=== PATIENT | female | born 1965 | race African-American/Black ===

== ENCOUNTER 2024-03-03 10:26 | Emergency (ER) | payer BC ==
[~2024-03-03] VITALS: Ht 160 cm; Wt 61.8 kg
[2024-03-03 10:35] VITALS: TEMP 98
[2024-03-03 11:51] LABS: COLLECTION METHOD CLEAN CATCH
[2024-03-03] MEDS ORDERED: NS 1,000 ML IV ONE ×2 (12:00)
[2024-03-03 12:06] LABS: PH 6.5 (5.0-8.5); URINE APPEARANCE CLEAR (CLEAR/HAZY); URINE BLOOD NEGATIVE (NEGATIVE); URINE COLOR YELLOW (YELLOW); URINE GLUCOSE NEGATIVE (NEGATIVE); URINE KETONE NEGATIVE (NEGATIVE); URINE NITRATE NEGATIVE (NEGATIVE); URINE PROTEIN(semi-quant) NEGATIVE (NEGATIVE); URINE UROBILINOGEN 0.2 E.U/dL (0.2-1.0)
[2024-03-03 12:18] LABS: ALBUMIN 3.6 g/dL (3.5-5.0); BILIRUBIN,TOTAL 0.5 mg/dL (0.2-1.2); CALCIUM 8.7 mg/dL (8.4-10.2); CREATININE, serum 0.76 mg/dL (0.57-1.11); TOTAL PROTEIN 7.4 g/dl (6.2-8.1)
[2024-03-03 12:29] LABS: TROPONIN-I 0.013 ng/mL (0.00-0.033)
[2024-03-03 13:05] LABS: BASO % 0.5 % (0.0-2.0); EOS # 0.2 K/mm3 (0.0-0.7); EOS % 4.5 % (0.0-4.0); GRAN # 2.4 K/mm3 (1.4-6.5); GRAN % 56.9 % (42.2-75.2); HEMATOCRIT 37.7 % (37.0-47.0); HEMOGLOBIN 12.9 g/dl (12.5-16.0); LYMPH # 1.2 K/mm3 (1.2-3.4); LYMPH % 28.4 % (20.0-51.0); MEAN CELL VOLUME 98 fl (80.0-100.0); MEAN CORPUSCULAR HEMOGLOBIN 34 pg (27-31); MEAN CORPUSCULAR HGB CONC 34 g/dl (33.0-37.0); MEAN PLATELET VOLUME 11.7 fl (7.4-10.4); MONO # 0.4 K/mm3 (0.1-0.6); MONO % 9.5 % (1.7-9.3); PLATELET COUNT 143 K/mm3 (130-400); RED BLOOD COUNT 3.83 M/mm3 (4.10-5.30); REDCELL DISTRIBUTION WIDTH-CV 12.2 % (11.5-14.5)
[2024-03-03 13:53] LABS: THYROID STIMULATING HORMONE 1.69 uIU/mL (0.350-4.940)
[2024-03-03 14:49] VITALS: BP 128/77; PULSE 73
== END 2024-03-03 14:54 | disposition home or self-care (01) ==
LOC: COL.ER 10:26
PROVIDERS: Family Medicine
DX: E86.0 Dehydration (principal); I95.1 Orthostatic hypotension
CPT/HCPCS: J7030